=== PATIENT | male | born 1935 | race Caucasian/White ===

== ENCOUNTER 2020-03-09 10:35 | Inpatient (IN) ==
[2020-03-09] MEDS: Acetaminophen 325 MG TABLET PO PRN (21:30)
[2020-03-10 05:24] LABS: Basophils % 0.2 %; Eosinophils # 0.1 K/mcL (0.0-0.6); Eosinophils % 0.8 %; Hematocrit 30.9 % (37.5-50.1); Hemoglobin 10.2 g/dL (12.9-16.9); Immature Granulocytes % 0.6 % (0-4); Lymphocytes # 0.5 K/mcL (0.6-4.6); Lymphocytes % 4.4 %; Mean Corpuscular Hemoglobin 30.4 pg (28.0-33.3); Mean Corpuscular Volume 92.2 fL (83.0-100.0); Mean Platelet Volume 10.8 fL (9.4-12.4); Monocytes # 1.2 K/mcL (0.0-1.3); Monocytes % 10.8 %; Neutrophils # 8.8 K/mcL (1.6-8.9); Platelet Count 157 K/mcL (140-400); Red Blood Count 3.35 M/mcL (4.19-5.50); Red Cell Distribution Width 13.1 % (11.5-14.5); Segmented Neutrophils % 83.2 %; White Blood Count 10.6 K/mcL (4.3-11.1)
[2020-03-10 05:40] LABS: Calcium 8.9 mg/dL (8.6-10.3); Potassium 3.8 mEq/L (3.5-5.1)
[2020-03-10] MEDS: Metoprolol XL (24 HR) Succ 50 MG TAB.ER.24H PO SCH (08:55)
[2020-03-10] MEDS: *HR* Rivaroxaban 15 MG TABLET PO SCH (08:55)
[2020-03-10] MEDS: Acetaminophen 325 MG TABLET PO PRN (12:04)
[2020-03-11] MEDS: Acetaminophen 325 MG TABLET PO PRN ×2 (05:38→21:06)
[2020-03-11] MEDS: Metoprolol XL (24 HR) Succ 50 MG TAB.ER.24H PO SCH (09:14)
[2020-03-11] MEDS: *HR* Rivaroxaban 15 MG TABLET PO SCH (09:14)
[2020-03-12] MEDS: Metoprolol XL (24 HR) Succ 50 MG TAB.ER.24H PO SCH (08:44)
[2020-03-12] MEDS: *HR* Rivaroxaban 15 MG TABLET PO SCH (08:45)
[2020-03-12] MEDS: Acetaminophen 325 MG TABLET PO PRN (20:24)
[2020-03-13] MEDS: Metoprolol XL (24 HR) Succ 50 MG TAB.ER.24H PO SCH (08:17)
[2020-03-13] MEDS: *HR* Rivaroxaban 15 MG TABLET PO SCH (08:19)
[2020-03-13] MEDS: Acetaminophen 325 MG TABLET PO PRN (08:26)
[2020-03-14] MEDS: Metoprolol XL (24 HR) Succ 50 MG TAB.ER.24H PO SCH (09:05)
[2020-03-14] MEDS: *HR* Rivaroxaban 15 MG TABLET PO SCH (09:05)
[2020-03-15 06:08] LABS: Hematocrit 32.8 % (37.5-50.1); Hemoglobin 10.7 g/dL (12.9-16.9); Mean Corpuscular HGB Conc 32.6 g/dL (31.6-35.5); Mean Corpuscular Hemoglobin 30.4 pg (28.0-33.3); Mean Corpuscular Volume 93.2 fL (83.0-100.0); Mean Platelet Volume 10.3 fL (9.4-12.4); Platelet Count 255 K/mcL (140-400); Red Blood Count 3.52 M/mcL (4.19-5.50); Red Cell Distribution Width 13.2 % (11.5-14.5); White Blood Count 7.7 K/mcL (4.3-11.1)
[2020-03-15 06:26] LABS: Calcium 8.9 mg/dL (8.6-10.3); Magnesium 1.9 mg/dL (1.6-2.6); Potassium 3.8 mEq/L (3.5-5.1)
[2020-03-15] MEDS: *HR* Rivaroxaban 15 MG TABLET PO SCH (09:15)
[2020-03-15] MEDS: Metoprolol XL (24 HR) Succ 50 MG TAB.ER.24H PO SCH (09:15)
[2020-03-15] MEDS: Acetaminophen 325 MG TABLET PO PRN (20:41)
[2020-03-16] MEDS: Acetaminophen 325 MG TABLET PO PRN ×2 (06:40→22:05)
[2020-03-16] MEDS: Metoprolol XL (24 HR) Succ 50 MG TAB.ER.24H PO SCH (08:55)
[2020-03-16] MEDS: *HR* Rivaroxaban 15 MG TABLET PO SCH (08:55)
[2020-03-16] MEDS: Melatonin 3 MG TABLET PO PRN (22:05)
[2020-03-16] MEDS: tiZANidine 4 MG TABLET PO PRN (22:05)
[2020-03-17] MEDS: Metoprolol XL (24 HR) Succ 50 MG TAB.ER.24H PO SCH (09:11)
[2020-03-17] MEDS: *HR* Rivaroxaban 15 MG TABLET PO SCH (09:12)
[2020-03-17] MEDS: tiZANidine 4 MG TABLET PO PRN ×2 (13:21→22:12)
[2020-03-17] MEDS: Acetaminophen 325 MG TABLET PO PRN (22:12)
[2020-03-17] MEDS: Melatonin 3 MG TABLET PO PRN (22:13)
[2020-03-18] MEDS: Acetaminophen 325 MG TABLET PO PRN (09:19)
[2020-03-18] MEDS: Metoprolol XL (24 HR) Succ 50 MG TAB.ER.24H PO SCH (09:19)
[2020-03-18] MEDS: *HR* Rivaroxaban 15 MG TABLET PO SCH (09:19)
[2020-03-19] MEDS: Acetaminophen 325 MG TABLET PO PRN ×2 (06:10→12:51)
[2020-03-19] MEDS: *HR* Rivaroxaban 15 MG TABLET PO SCH (08:47)
[2020-03-19] MEDS: Metoprolol XL (24 HR) Succ 50 MG TAB.ER.24H PO SCH (08:47)
[2020-03-20] MEDS: Acetaminophen 325 MG TABLET PO PRN ×2 (08:47→20:08)
[2020-03-20] MEDS: Metoprolol XL (24 HR) Succ 50 MG TAB.ER.24H PO SCH (08:47)
[2020-03-20] MEDS: *HR* Rivaroxaban 15 MG TABLET PO SCH (08:47)
[2020-03-20] MEDS: Melatonin 3 MG TABLET PO PRN (23:08)
[2020-03-21 06:33] LABS: Basophils % 0.5 %; Eosinophils # 0.2 K/mcL (0.0-0.6); Eosinophils % 2.1 %; Hematocrit 30.3 % (37.5-50.1); Hemoglobin 10.2 g/dL (12.9-16.9); Immature Granulocytes % 0.4 % (0-4); Lymphocytes # 0.8 K/mcL (0.6-4.6); Lymphocytes % 10.2 %; Mean Corpuscular HGB Conc 33.7 g/dL (31.6-35.5); Mean Corpuscular Hemoglobin 30.9 pg (28.0-33.3); Mean Corpuscular Volume 91.8 fL (83.0-100.0); Mean Platelet Volume 9.9 fL (9.4-12.4); Monocytes % 12.2 %; Platelet Count 242 K/mcL (140-400); Red Cell Distribution Width 13.6 % (11.5-14.5); Segmented Neutrophils % 74.6 %
[2020-03-21 06:53] LABS: Calcium 8.6 mg/dL (8.6-10.3)
[2020-03-21] MEDS: *HR* Rivaroxaban 15 MG TABLET PO SCH (08:57)
[2020-03-21] MEDS: Metoprolol XL (24 HR) Succ 50 MG TAB.ER.24H PO SCH (08:57)
[2020-03-21 18:50] LABS: Bilirubin,Urine Negative (Negative); Blood,Urine Negative (Negative); Clarity,Urine Clear (Clear); Color,Urine Yellow (Yellow); Glucose,Urine (UA) Normal (Normal); Ketones,Urine Negative (Negative); Leukocyte Esterase,Urine Negative (Negative); Nitrite,Urine Negative (Negative); Protein,Urine Trace mg/dL (Neg-Trace); Specific Gravity,Urine 1.015 (1.010-1.025); Urobilinogen,Urine Normal (Normal)
[2020-03-21 18:55] LABS: Amorphous Sediment,Urine Few per hpf (None-Few)
[2020-03-21] MEDS: Acetaminophen 325 MG TABLET PO PRN (21:54)
[2020-03-22] MEDS: Acetaminophen 325 MG TABLET PO PRN (05:53)
[2020-03-22 07:29] VITALS: BP 131/74
[2020-03-22] MEDS: *HR* Rivaroxaban 15 MG TABLET PO SCH (11:42)
[2020-03-22] MEDS: Metoprolol XL (24 HR) Succ 50 MG TAB.ER.24H PO SCH (11:43)
== END 2020-03-22 15:32 | DRG 561 ==
LOC: INPGRE 19:33
PROVIDERS: ADMIT Family Medicine; ATTEND Family Medicine